=== PATIENT | male | born 1990 | race Caucasian/White ===

== ENCOUNTER 2019-10-15 11:37 | Emergency (ER) | payer MEDICAID ==
[~2019-10-15] VITALS: Ht 193 cm; Wt 106.6 kg
[2019-10-15 11:39] VITALS: BP_SYST 131
--- NOTE | 2019-10-15 11:42 | NUR ---
Patient to ER bed 04 to gown for evaluation. Side rails up.
--- NOTE | 2019-10-15 11:45 | NUR ---
Pt brought by self, A&Ox4, pt presents to ER with L chest wall pain x 2 days, denies SOB, respirations even and unlabored, cap refill <3.
--- NOTE | 2019-10-15 12:00 | NUR ---
Dr Parra at bedside examining patient
[2019-10-15] MEDS ORDERED: traMADol HCL HCL 50 MG TABLET (ULTRAM) PO ONE (12:45)
[2019-10-15 13:19] VITALS: BP_SYST 131
--- NOTE | 2019-10-15 13:19 | NUR ---
Patient given written and verbal discharge instructions and verbalizes understanding. ER MD discussed with patient the results and treatment provided. Patient in stable condition. ID arm band removed. IV catheter removed intact and dressing applied, no active bleeding. Rx of Naproxen given. Patient educated on pain management and to follow up with PMD. Pain Scale 3/10. Opportunity for questions provided and answered. Medication side effect fact sheet provided.
== END 2019-10-15 13:19 | disposition home or self-care (01) ==
LOC: SED 11:37
DX: R07.89 Other chest pain (principal)
CPT/HCPCS: 71045; 93005; 99283